=== PATIENT | male | born 1965 | race Two or more races ===

== ENCOUNTER 2017-02-27 16:50 | Emergency (ER) | payer MEDICAID ==
[~2017-02-27] VITALS: Ht 185.4 cm; Wt 95.3 kg
[2017-02-27] MEDS ORDERED: SODIUM CHLORIDE 0.9% 1,000 ML IVB ONE (16:57)
[2017-02-27] MEDS ORDERED: KETOROLAC TROMETH 30 MG/ML 1ML VIAL IV ONE (17:00)
[2017-02-27 17:23] LABS: Basophils # (auto) 0.1 uL; Basophils % (auto) 0.7 % (0.0-2.0); CONDITION Y; Eosinophils # (auto) 0.3 uL; Hematocrit 44.4 % (41.0-53.0); Lymphocytes # (auto) 1.7 uL; Lymphocytes % (auto) 12.6 % (10.0-50.0); Mean Corpuscular Hemoglobin 30.8 pg (28.0-32.0); Mean Corpuscular Hgb Conc. 33.8 g/dL (32.0-36.0); Mean Corpuscular Volume 91.1 fL (80.0-100.0); Mean Platelet Volume 8.7 fL (7.4-10.4); Monocytes # (auto) 0.7 uL; Monocytes % (auto) 5.1 % (0.0-12.0); Neutrophils # (auto) 10.9 uL; Neutrophils % (auto) 79.6 % (37.0-80.0); Platelet Count (auto) 327 10^3/uL (140-450); Red Cell Distribution Width 14.8 % (11.6-16.0); White Blood Cell 13.7 10^3/uL (4.4-10.8)
[2017-02-27 17:32] LABS: Albumin 3.4 g/dL (3.4-5.0); BUN/Creatinine Ratio 7.9; Calcium 8.4 mg/dL (8.5-10.1); Potassium 4.2 mmol/L (3.5-5.1)
[2017-02-27 17:35] LABS: Bilirubin, Total 0.2 mg/dL (0.2-1.0); Total Protein 7.3 g/dL (6.4-8.2)
[2017-02-27 18:00] VITALS: BP 161/93
[2017-02-27] MEDS ORDERED: MORPHINE SULFATE 4 MG/ML SYRG IV ONE (18:15)
[2017-02-27] MEDS ORDERED: ONDANSETRON HCL 4 MG/2 ML VIAL IV ONE (18:15)
[2017-02-27 18:24] LABS: Urine Bilirubin Negative (Negative); Urine Blood Negative /uL (Negative); Urine Color Yellow (Yellow); Urine Glucose Normal (Normal); Urine Ketone Negative (Negative); Urine Mucus FEW (None Seen); Urine Nitrite Negative (Negative); Urine RBC 1 /hpf (0 - 3); Urine Urobilinogen Normal (Negative); Urine pH 6.5 (5.0-8.0)
== END 2017-02-27 19:01 | disposition home or self-care (01) ==
LOC: ER 16:53
DX: N20.0 Calculus of kidney (principal); F17.210 Nicotine dependence, cigarettes, uncomplicated
CPT/HCPCS: 36415; 74176; 80053; 81001; 83690; 85025; 94761; 96361; 96374; 96375; 99285; J1885; J2270; J2405; J7030

== ENCOUNTER 2017-03-01 21:44 | Emergency (ER) | payer MEDICAID ==
[~2017-03-01] VITALS: Ht 185.4 cm; Wt 95.3 kg
[2017-03-01] MEDS ORDERED: SODIUM CHLORIDE 0.9% 1,000 ML IVB ONE (22:00)
[2017-03-01 22:53] LABS: Basophils # (auto) 0.1 uL; Basophils % (auto) 0.4 % (0.0-2.0); CONDITION Y; Eosinophils # (auto) 0.2 uL; Eosinophils % (auto) 1.6 % (0.0-7.0); Hematocrit 42.3 % (41.0-53.0); Hemoglobin 14.4 g/dL (13.5-17.5); Lymphocytes # (auto) 1.9 uL; Mean Corpuscular Hgb Conc. 34.2 g/dL (32.0-36.0); Mean Corpuscular Volume 90.6 fL (80.0-100.0); Mean Platelet Volume 8.1 fL (7.4-10.4); Monocytes % (auto) 7.6 % (0.0-12.0); Neutrophils # (auto) 10.4 uL; Neutrophils % (auto) 76.4 % (37.0-80.0); Platelet Count (auto) 328 10^3/uL (140-450); Red Cell Distribution Width 14.3 % (11.6-16.0); White Blood Cell 13.6 10^3/uL (4.4-10.8)
[2017-03-01 23:14] LABS: Albumin 3.2 g/dL (3.4-5.0); Anion Gap 8 (5-15); Aspartate Aminotransferase 16 U/L (15-37); BUN/Creatinine Ratio 10.8; Blood Urea Nitrogen 13 mg/dL (7-18); Calcium 8.2 mg/dL (8.5-10.1); Carbon Dioxide 28 mmol/L (21-32); Chloride 107 mmol/L (98-107); GFR African American 83 mL/min; GFR Non-African American 68 mL/min; Glucose 105 mg/dL (74-106); Sodium 143 mmol/L (136-145)
[2017-03-01 23:18] LABS: Alkaline Phosphatase 74 U/L (45-117); Bilirubin, Total 0.2 mg/dL (0.2-1.0); Total Protein 6.8 g/dL (6.4-8.2)
[2017-03-02] MEDS ORDERED: ONDANSETRON HCL 4 MG/2 ML VIAL IV ONE
[2017-03-02] MEDS ORDERED: HYDROmorphone HCL 2 MG/ML VL IV ONE
[2017-03-02] MEDS ORDERED: SODIUM CHLORIDE 0.9% 1,000 ML IV ONE (01:15)
[2017-03-02 02:00] VITALS: BP 148/92
[2017-03-03] MEDS ORDERED: HYDR-4663 PO (10:58)
[2017-03-03] MEDS ORDERED: CEPH500C PO (10:58)
[2017-03-03] MEDS ORDERED: TAM04C PO (16:24)
== END 2017-03-02 02:18 | disposition home or self-care (01) ==
LOC: ER 21:46
DX: N20.0 Calculus of kidney (principal); F17.210 Nicotine dependence, cigarettes, uncomplicated; Z88.8 Allergy status to other drugs, medicaments and biological substances
CPT/HCPCS: 36415; 74176; 80053; 84484; 85025; 96361; 96374; 96375; 99285; J1170; J2405; J7030

== ENCOUNTER 2017-03-02 06:01 | Inpatient (IN) | payer MEDICAID ==
[~2017-03-02] VITALS: Ht 185.4 cm; Wt 95.3 kg
[2017-03-02] MEDS ORDERED: cloNIDine HCL 0.1 MG TAB ONE (06:21)
[2017-03-02] MEDS ORDERED: cloNIDine HCL 0.1 MG TAB PO ONE (06:30)
[2017-03-02] MEDS ORDERED: SODIUM CHLORIDE 0.9% 1,000 ML IVB ONE (07:05)
[2017-03-02] MEDS ORDERED: KETOROLAC TROMETH 30 MG/ML 1ML VIAL IV ONE (07:15)
[2017-03-02 07:32] LABS: Basophils # (auto) 0.1 uL; Basophils % (auto) 0.4 % (0.0-2.0); CONDITION Y; Eosinophils # (auto) 0.2 uL; Eosinophils % (auto) 1.5 % (0.0-7.0); Hematocrit 41.1 % (41.0-53.0); Hemoglobin 13.8 g/dL (13.5-17.5); Lymphocytes # (auto) 1.5 uL; Lymphocytes % (auto) 10.4 % (10.0-50.0); Mean Corpuscular Hemoglobin 30.6 pg (28.0-32.0); Mean Corpuscular Hgb Conc. 33.5 g/dL (32.0-36.0); Mean Corpuscular Volume 91.2 fL (80.0-100.0); Mean Platelet Volume 8.2 fL (7.4-10.4); Monocytes # (auto) 1.1 uL; Monocytes % (auto) 7.9 % (0.0-12.0); Neutrophils # (auto) 11.7 uL; Neutrophils % (auto) 79.8 % (37.0-80.0); Platelet Count (auto) 319 10^3/uL (140-450); Red Cell Distribution Width 14.8 % (11.6-16.0); White Blood Cell 14.6 10^3/uL (4.4-10.8)
[2017-03-02 07:45] LABS: Bilirubin, Total 0.3 mg/dL (0.2-1.0); Potassium 3.8 mmol/L (3.5-5.1); Total Protein 6.7 g/dL (6.4-8.2)
[2017-03-02] MEDS ORDERED: hydrALAZINE HCL 20 MG/ML VL IV PRN (07:45)
[2017-03-02] MEDS ORDERED: SODIUM CHLORIDE 0.9% 1,000 ML IV SCH (07:45)
[2017-03-02] MEDS ORDERED: TAMSULOSIN HYDROCHLORIDE 0.4 MG CAP PO ONE (07:45)
[2017-03-02] MEDS ORDERED: NITROGLYCERIN 0.4 MG SL TAB SL PRN (07:45)
[2017-03-02] MEDS ORDERED: HYDROcodone-ACET 5/325MG TAB PO PRN (07:45)
[2017-03-02] MEDS ORDERED: cefTRIAXone 1GM/50ML D5W 50 ML IV ONE (07:45)
[2017-03-02] MEDS ORDERED: TEMAZEPAM 15 MG CAP PO PRN (07:45)
[2017-03-02] MEDS ORDERED: ACETAMINOPHEN 500 MG TAB PO PRN (07:45)
[2017-03-02] MEDS ORDERED: LORazepam 0.5 MG TAB PO PRN (07:45)
[2017-03-02] MEDS ORDERED: ONDANSETRON HCL 4 MG/2 ML VIAL IV PRN (07:45)
[2017-03-02] MEDS ORDERED: MORPHINE SULF INJ 2 MG/ML SYRINGE 1ML IV PRN (07:45)
[2017-03-02 09:46] LABS: Urine Bilirubin Negative (Negative); Urine Blood TRACE /uL (Negative); Urine Color Yellow (Yellow); Urine Glucose Normal (Normal); Urine Hyaline Cast FEW /lpf (0 - 2); Urine Ketone Negative (Negative); Urine Nitrite Negative (Negative); Urine RBC 4 /hpf (0 - 3); Urine Squamous Epithelial Cell FEW /hpf (<5); Urine Urobilinogen Normal (Negative)
[2017-03-02 10:46] VITALS: BP 130/84
[2017-03-02] MEDS: MORPHINE SULF INJ 2 MG/ML SYRINGE 1ML IV PRN ×2 (12:54→22:33)
[2017-03-02 14:58] VITALS: BP 130/84
[2017-03-02 17:36] VITALS: BP 145/87
[2017-03-02 22:00] VITALS: BP 156/81
[2017-03-03 05:00] VITALS: BP 139/92
[2017-03-03 06:29] LABS: Basophils # (auto) 0 uL; Basophils % (auto) 0.4 % (0.0-2.0); CONDITION Y; Eosinophils # (auto) 0.3 uL; Eosinophils % (auto) 2.1 % (0.0-7.0); Lymphocytes % (auto) 16.8 % (10.0-50.0); Mean Corpuscular Hemoglobin 30.9 pg (28.0-32.0); Mean Corpuscular Hgb Conc. 34.2 g/dL (32.0-36.0); Mean Corpuscular Volume 90.1 fL (80.0-100.0); Mean Platelet Volume 8.5 fL (7.4-10.4); Monocytes # (auto) 1.4 uL; Monocytes % (auto) 11.5 % (0.0-12.0); Neutrophils # (auto) 8.3 uL; Neutrophils % (auto) 69.2 % (37.0-80.0); Platelet Count (auto) 290 10^3/uL (140-450); Red Cell Distribution Width 14.6 % (11.6-16.0); White Blood Cell 11.9 10^3/uL (4.4-10.8)
[2017-03-03 06:52] LABS: BUN/Creatinine Ratio 9.2; Magnesium 2.3 mg/dL (1.6-2.6); Potassium 3.8 mmol/L (3.5-5.1)
[2017-03-03] MEDS ORDERED: SODIUM CHLORIDE 0.9% 1,000 ML IV SCH (07:45)
[2017-03-03 08:00] VITALS: BP 125/66
[2017-03-03] MEDS ORDERED: cefTRIAXone 1GM/50ML D5W 50 ML IV SCH (09:00)
[2017-03-03] MEDS ORDERED: HYDR-4663 PO (10:58)
[2017-03-03] MEDS ORDERED: CEPH500C PO (10:58)
[2017-03-03 13:00] VITALS: BP 132/64
[2017-03-03] MEDS ORDERED: TAM04C PO (16:24)
[2017-03-03 17:09] VITALS: BP 139/56
[2017-03-03 17:49] VITALS: BP 125/66
[2017-03-03] MEDS ORDERED: TAMSULOSIN HYDROCHLORIDE 0.4 MG CAP PO SCH (18:00)
== END 2017-03-03 18:30 | disposition home or self-care (01) | DRG 465 ==
LOC: ER 06:05 → TELE 06:06 → TELE-WESTW 10:31
PROVIDERS: ADMIT Nurse Practitioner Family; ATTEND Internal Medicine
DX: N13.2 Hydronephrosis with renal and ureteral calculous obstruction (principal); I16.0 Hypertensive urgency; I10 Essential (primary) hypertension; K40.90 Unilateral inguinal hernia, without obstruction or gangrene, not specified as recurrent; D72.829 Elevated white blood cell count, unspecified; F17.210 Nicotine dependence, cigarettes, uncomplicated; J98.11 Atelectasis
CPT/HCPCS: 36415; 80048; 80053; 80061; 81001; 83735; 85025; 94761; 96361; 96365; 96375; J0696; J1885

== ENCOUNTER 2018-01-01 21:12 | Emergency (ER) | payer SELFPAY ==
[~2018-01-01] VITALS: Ht 182.9 cm; Wt 90.7 kg
[~2018-01-01 21:12] MED LIST: CEPH500C PO; HYDR-4683 PO; TAM04C PO
[2018-01-01 21:48] VITALS: BP 130/99
== END 2018-01-01 23:00 | disposition left against medical advice (07) ==
LOC: ER 21:12
DX: S61.211A Laceration without foreign body of left index finger without damage to nail, initial encounter (principal); Z53.21 Procedure and treatment not carried out due to patient leaving prior to being seen by health care provider; W26.9XXA Contact with unspecified sharp object(s), initial encounter; Y93.89 Activity, other specified; Y99.8 Other external cause status; Y92.89 Other specified places as the place of occurrence of the external cause

== ENCOUNTER 2018-01-04 20:29 | Emergency (ER) | payer SELFPAY ==
[~2018-01-04] VITALS: Ht 182.9 cm; Wt 93.0 kg
[2018-01-04 20:52] VITALS: BP 149/97
[2018-01-05] MEDS ORDERED: TETANUS-DIPTH-ACEL PERTUSSIS 0.5ML SYRG IM ONE (00:15)
[2018-01-05] MEDS ORDERED: cefTRIAXone SOD 1,000 MG VL IM ONE (00:15)
== END 2018-01-05 00:44 | disposition home or self-care (01) ==
LOC: ER 20:29
DX: S61.211A Laceration without foreign body of left index finger without damage to nail, initial encounter (principal); F17.210 Nicotine dependence, cigarettes, uncomplicated; Z88.8 Allergy status to other drugs, medicaments and biological substances
CPT/HCPCS: 12001; 90471; 90715; 96372; 99284; J0696

== ENCOUNTER 2019-02-08 18:42 | Emergency (ER) | payer MEDICAID ==
[~2019-02-08] VITALS: Ht 185.4 cm; Wt 95.3 kg
[2019-02-08 19:48] LABS: Albumin 3.8 g/dL (3.4-5.0); Anion Gap 9 (5-15); Blood Urea Nitrogen 18 mg/dL (7-18); Calcium 8.2 mg/dL (8.5-10.1); Carbon Dioxide 22 mmol/L (21-32); Chloride 111 mmol/L (98-107); Potassium 3.3 mmol/L (3.5-5.1); Sodium 142 mmol/L (136-145)
[2019-02-08 19:51] LABS: Alanine Aminotransferase 56 U/L (16-61); Aspartate Aminotransferase 78 U/L (15-37); BUN/Creatinine Ratio 14.9; GFR African American 81 mL/min; GFR Non-African American 67 mL/min; Glucose 102 mg/dL (74-106); INR 0.98 (0.9-1.15); Partial Thromboplastin Time 24.1 sec (23.64-32.05)
[2019-02-08 19:55] LABS: Alkaline Phosphatase 88 U/L (45-117); Total Protein 7.6 g/dL (6.4-8.2)
[2019-02-08 20:12] LABS: Basophils # (auto) 0.1 uL; Basophils % (auto) 0.7 % (0.0-2.0); Eosinophils # (auto) 0.2 uL; Eosinophils % (auto) 1.8 % (0.0-7.0); Hematocrit 41.8 % (41.0-53.0); Lymphocytes # (auto) 2.4 uL; Lymphocytes % (auto) 19.7 % (10.0-50.0); Mean Corpuscular Hemoglobin 30.9 pg (28.0-32.0); Mean Corpuscular Hgb Conc. 33.5 g/dL (32.0-36.0); Mean Corpuscular Volume 92.3 fL (80.0-100.0); Monocytes # (auto) 1.2 uL; Monocytes % (auto) 9.8 % (0.0-12.0); Neutrophils # (auto) 8.2 uL; Nucleated Red Blood Cells % 0.1 %; Platelet Count (auto) 281 10^3/uL (140-450); Red Blood Cells 4.53 10^6/uL (4.5-5.90); Red Cell Distribution Width 14.5 % (11.8-14.3); White Blood Cell 12.1 10^3/uL (4.4-10.8)
[2019-02-08] MEDS ORDERED: IOHEXOL 350 MG/ML 100ML IJ ONE (20:42)
[2019-02-08] MEDS ORDERED: SODIUM CHLORIDE 0.9% 1,000 ML IV ONE ×2 (20:45→23:00)
[2019-02-08] MEDS ORDERED: ACETAMINOPHEN 325 MG TAB PO ONE (21:15)
[2019-02-08 22:27] LABS: Urine Bacteria NONE SEEN /hpf (None Seen); Urine Blood TRACE /uL (Negative); Urine Mucus FEW (None Seen); Urine WBC 1 /hpf (0 - 3)
[2019-02-08 22:30] LABS: Urine Specific Gravity > 1.050 (1.001-1.035)
[2019-02-08 22:53] LABS: Alcohol, Urine < 3.0 mg/dL (0-5); Amphetamine Screen, Urine POSITIVE (NEGATIVE); Benzodiazephine Screen, Urine NEGATIVE (NEGATIVE); Cocaine Screen, Urine NEGATIVE (NEGATIVE); Opiate Scree,Urine NEGATIVE (NEGATIVE); Phencyclidine Screen, Urine NEGATIVE (NEGATIVE)
[2019-02-08 23:00] LABS: Barbiturate Scree,Urine NEGATIVE (NEGATIVE); Cannabinoid Screen, Urine NEGATIVE (NEGATIVE)
[2019-02-08 23:32] VITALS: BP 128/92
== END 2019-02-08 23:48 | disposition home or self-care (01) ==
LOC: ER 18:44
DX: F19.10 Other psychoactive substance abuse, uncomplicated (principal); R53.83 Other fatigue; R06.02 Shortness of breath; I10 Essential (primary) hypertension; F17.210 Nicotine dependence, cigarettes, uncomplicated
CPT/HCPCS: 36415; 71046; 71275; 80053; 80307; 81001; 83880; 84484; 85025; 85379; 85610; 85730; 94761; 99284; J7030; Q9967

== ENCOUNTER 2020-12-11 21:05 | Emergency (ER) | payer SELFPAY ==
[~2020-12-11] VITALS: Ht 182.9 cm; Wt 86.2 kg
[~2020-12-11 21:05] MED LIST changes: -HYDR-4683 PO; +HYDR-4833 PO
[2020-12-11] MEDS ORDERED: KETOROLAC TROMETH 30 MG/ML 1ML VIAL IV ONE (21:45)
[2020-12-11 22:17] LABS: Basophils # (auto) 0.1 10 ^3/uL (0-0.2); Basophils % (auto) 1.2 % (0.0-2.0); Eosinophils # (auto) 0.2 10 ^3/uL (0-0.8); Hematocrit 43.6 % (41.0-53.0); Hemoglobin 14.9 g/dL (13.5-17.5); Lymphocytes # (auto) 1.8 10 ^3/uL (0.4-5.4); Lymphocytes % (auto) 27.9 % (10.0-50.0); Mean Corpuscular Hemoglobin 31.4 pg (28.0-32.0); Mean Corpuscular Hgb Conc. 34.2 g/dL (32.0-36.0); Monocytes # (auto) 0.6 10 ^3/uL (0-1.3); Monocytes % (auto) 9.4 % (0.0-12.0); Neutrophils # (auto) 3.7 10 ^3/uL (1.6-8.6); Neutrophils % (auto) 58.5 % (37.0-80.0); Nucleated Red Blood Cells % 0.1 %; Platelet Count (auto) 300 10^3/uL (140-450); Red Blood Cells 4.74 10^6/uL (4.5-5.90); Red Cell Distribution Width 14.2 % (11.8-14.3); White Blood Cell 6.3 10^3/uL (4.4-10.8)
[2020-12-11 22:34] LABS: Albumin 3.4 g/dL (3.4-5.0); Calcium 8.4 mg/dL (8.5-10.1); Potassium 4.1 mmol/L (3.5-5.1)
[2020-12-11 22:37] LABS: BUN/Creatinine Ratio 11.6
[2020-12-11 22:39] LABS: Bilirubin, Total 0.4 mg/dL (0.2-1.0); Total Protein 6.8 g/dL (6.4-8.2)
[2020-12-12] MEDS ORDERED: ONDANSETRON HCL 4 MG/2 ML VIAL IV ONE (00:45)
[2020-12-12] MEDS ORDERED: HYDROmorphone HCL 2 MG/ML VL IV ONE (00:45)
[2020-12-12 01:11] LABS: Urine Bacteria FEW /hpf (None Seen); Urine Blood 2+ /uL (Negative); Urine Mucus FEW (None Seen); Urine Specific Gravity 1.009 (1.001-1.035); Urine WBC 2 /hpf (0 - 3)
[2020-12-12 01:20] LABS: Alcohol, Urine < 3.0 mg/dL (0-10); Amphetamine Screen, Urine POSITIVE (NEGATIVE); Barbiturate Scree,Urine NEGATIVE (NEGATIVE); Benzodiazephine Screen, Urine NEGATIVE (NEGATIVE); Cannabinoid Screen, Urine NEGATIVE (NEGATIVE); Cocaine Screen, Urine NEGATIVE (NEGATIVE); Phencyclidine Screen, Urine NEGATIVE (NEGATIVE)
[2020-12-12 01:28] LABS: Opiate Scree,Urine NEGATIVE (NEGATIVE)
[2020-12-12 02:46] VITALS: BP 127/87
== END 2020-12-12 02:41 | disposition home or self-care (01) ==
LOC: ER 21:07
DX: N20.0 Calculus of kidney (principal)
CPT/HCPCS: 36415; 74176; 80053; 80307; 81001; 85025; 96374; 99285; J1885

== ENCOUNTER 2021-12-06 17:18 | Emergency (ER) | payer OTHER ==
[~2021-12-06] VITALS: Ht 182.9 cm; Wt 72.6 kg
[2021-12-06 17:18] VITALS: BP 153/103
[2021-12-06 17:57] LABS: Basophils # (auto) 0.1 10 ^3/uL (0-0.2); Basophils % (auto) 1.6 % (0.0-2.0); Eosinophils # (auto) 0.2 10 ^3/uL (0-0.8); Eosinophils % (auto) 3.5 % (0.0-7.0); Hematocrit 44.8 % (41.0-53.0); Hemoglobin 15.2 g/dL (13.5-17.5); Lymphocytes # (auto) 1.9 10 ^3/uL (0.4-5.4); Lymphocytes % (auto) 29.4 % (10.0-50.0); Mean Corpuscular Hemoglobin 31.6 pg (28.0-32.0); Mean Corpuscular Hgb Conc. 33.9 g/dL (32.0-36.0); Mean Corpuscular Volume 93.2 fL (80.0-100.0); Monocytes # (auto) 0.5 10 ^3/uL (0-1.3); Neutrophils # (auto) 3.7 10 ^3/uL (1.6-8.6); Neutrophils % (auto) 57.5 % (37.0-80.0); Nucleated Red Blood Cells % 0.2 %; Red Blood Cells 4.81 10^6/uL (4.5-5.90); White Blood Cell 6.4 10^3/uL (4.4-10.8)
[2021-12-06 19:17] LABS: Albumin 3.5 g/dL (3.4-5.0); Calcium 8.6 mg/dL (8.5-10.1); Potassium 4.2 mmol/L (3.5-5.1)
[2021-12-06 19:20] LABS: BUN/Creatinine Ratio 9.4; Bilirubin, Total 0.2 mg/dL (0.2-1.0); Total Protein 7.1 g/dL (6.4-8.2)
[2021-12-06] MEDS ORDERED: PRED10TA PO (19:22)
[2021-12-06] MEDS ORDERED: PANT40TA2 PO (19:22)
[2021-12-06] MEDS ORDERED: LORazepam 0.5 MG TAB PO ONE (19:30)
[2021-12-06] MEDS ORDERED: methylPREDNISolone SOD SUCC 125 MG/2 ML VL IM ONE (19:30)
[2021-12-12] MEDS ORDERED: LISD50CA4 PO (18:58)
== END 2021-12-06 20:14 | disposition home or self-care (01) ==
LOC: ER 17:18
DX: M54.12 Radiculopathy, cervical region (principal); I10 Essential (primary) hypertension; M47.812 Spondylosis without myelopathy or radiculopathy, cervical region; F17.210 Nicotine dependence, cigarettes, uncomplicated; F15.10 Other stimulant abuse, uncomplicated; Z87.442 Personal history of urinary calculi
CPT/HCPCS: 36415; 71250; 72125; 73060; 80053; 84484; 85025; 93005

== ENCOUNTER 2022-01-05 16:19 | Emergency (ER) | payer OTHER ==
[~2022-01-05] VITALS: Ht 182.9 cm; Wt 81.6 kg
[~2022-01-05 16:19] MED LIST changes: +LISD50CA4 PO; +PANT40TA2 PO; +PRED10TA PO
[2022-01-05] MEDS ORDERED: FLUORESCEIN SOD OPTH TEST STRIP OP ONE (16:45)
[2022-01-05] MEDS ORDERED: TOBR0.3S RIGHT EAR (17:00)
[2022-01-05 17:15] VITALS: BP 130/76
[2022-01-05] MEDS ORDERED: TOBR0.3S RIGHTEYE (17:18)
== END 2022-01-05 17:21 | disposition home or self-care (01) ==
LOC: ER 16:19
DX: S05.01XA Injury of conjunctiva and corneal abrasion without foreign body, right eye, initial encounter (principal); I10 Essential (primary) hypertension; F17.210 Nicotine dependence, cigarettes, uncomplicated; F15.10 Other stimulant abuse, uncomplicated; Z87.442 Personal history of urinary calculi; W22.8XXA Striking against or struck by other objects, initial encounter; Y93.89 Activity, other specified; Y92.89 Other specified places as the place of occurrence of the external cause; Y99.8 Other external cause status

== ENCOUNTER 2022-11-08 14:25 | Emergency (ER) | payer OTHER ==
[~2022-11-08] VITALS: Ht 177.8 cm; Wt 85.0 kg
[~2022-11-08 14:25] MED LIST changes: +TOBR0.3S RIGHTEYE
[2022-11-08 15:09] VITALS: BP 135/85
[2022-11-08 15:14] LABS: Basophils # (auto) 0.1 10 ^3/uL (0-0.2); Eosinophils # (auto) 0.6 10 ^3/uL (0-0.8); Eosinophils % (auto) 7.6 % (0.0-7.0); Hematocrit 42.7 % (41.0-53.0); Hemoglobin 14.2 g/dL (13.5-17.5); Lymphocytes # (auto) 1.9 10 ^3/uL (0.4-5.4); Lymphocytes % (auto) 23.9 % (10.0-50.0); Mean Corpuscular Hemoglobin 30.4 pg (28.0-32.0); Mean Corpuscular Hgb Conc. 33.2 g/dL (32.0-36.0); Mean Corpuscular Volume 91.7 fL (80.0-100.0); Monocytes # (auto) 0.8 10 ^3/uL (0-1.3); Monocytes % (auto) 9.6 % (0.0-12.0); Neutrophils # (auto) 4.6 10 ^3/uL (1.6-8.6); Neutrophils % (auto) 57.9 % (37.0-80.0); Red Blood Cells 4.66 10^6/uL (4.5-5.90); Red Cell Distribution Width 14.3 % (11.8-14.3); White Blood Cell 7.9 10^3/uL (4.4-10.8)
[2022-11-08 15:29] LABS: Albumin 3.4 g/dL (3.4-5.0); Potassium 4.3 mmol/L (3.5-5.1)
[2022-11-08 15:32] LABS: BUN/Creatinine Ratio 15.9 (10.0-20.0); Bilirubin, Total 0.2 mg/dL (0.2-1.0); Total Protein 6.6 g/dL (6.4-8.2)
[2022-11-08] MEDS ORDERED: methylPREDNISolone SOD SUCC 125 MG/2 ML VL IM ONE (16:15)
[2022-11-08] MEDS ORDERED: cefTRIAXone SOD 1,000 MG VL IM ONE (16:15)
[2022-11-08] MEDS ORDERED: CEPH-510 PO (16:18)
[2022-11-08] MEDS ORDERED: PRED20TA2 PO (16:18)
[2022-11-08] MEDS ORDERED: TRIA0.1O TOP (16:18)
== END 2022-11-08 16:39 | disposition home or self-care (01) ==
LOC: ER 14:25
DX: L23.9 Allergic contact dermatitis, unspecified cause (principal); I10 Essential (primary) hypertension; F17.210 Nicotine dependence, cigarettes, uncomplicated; F15.10 Other stimulant abuse, uncomplicated; Z87.442 Personal history of urinary calculi; Z88.1 Allergy status to other antibiotic agents; Z88.6 Allergy status to analgesic agent
CPT/HCPCS: 36415; 80053; 85025; 87205; 96372; 99284; J0696; J2930; 87077; 87186

== ENCOUNTER 2022-12-24 19:12 | Emergency (ER) | payer OTHER ==
[~2022-12-24] VITALS: Ht 182.9 cm; Wt 90.0 kg
[2022-12-24 19:12] VITALS: BP 182/92
[~2022-12-24 19:12] MED LIST changes: +CEPH-510 PO; +PRED20TA2 PO; +TRIA0.1O TOP
[2022-12-26] MEDS ORDERED: TRIA0.1O TOP (15:04)
[2022-12-26] MEDS ORDERED: CEPH-510 PO (15:04)
[2022-12-26] MEDS ORDERED: PRED20TA2 PO (15:04)
== END 2022-12-25 00:22 | disposition left against medical advice (07) ==
LOC: ER 19:12
DX: R21 Rash and other nonspecific skin eruption (principal); L29.9 Pruritus, unspecified; Z53.21 Procedure and treatment not carried out due to patient leaving prior to being seen by health care provider

== ENCOUNTER 2022-12-26 12:40 | Emergency (ER) | payer OTHER ==
[~2022-12-26] VITALS: Ht 182.9 cm; Wt 86.3 kg
[2022-12-26 14:10] VITALS: BP 138/98
[2022-12-26] MEDS ORDERED: PRED20TA2 PO (15:04)
[2022-12-26] MEDS ORDERED: TRIA0.1O TOP (15:04)
[2022-12-26] MEDS ORDERED: CEPH-510 PO (15:04)
== END 2022-12-26 15:11 | disposition home or self-care (01) ==
LOC: ER 12:40
DX: L23.9 Allergic contact dermatitis, unspecified cause (principal); I10 Essential (primary) hypertension; F17.210 Nicotine dependence, cigarettes, uncomplicated; F15.10 Other stimulant abuse, uncomplicated; Z87.442 Personal history of urinary calculi; Z88.6 Allergy status to analgesic agent

== ENCOUNTER 2023-03-13 13:59 | Emergency (ER) | payer MEDICAID, OTHER ==
[~2023-03-13] VITALS: Ht 182.9 cm; Wt 87.1 kg
[~2023-03-13 13:59] MED LIST changes: -TAM04C PO; +TAMS-35 PO
[2023-03-13 14:47] VITALS: BP 141/96; PULSE 103; RESP 18; TEMP 98.6; O2SAT 98
[2023-03-13] MEDS ORDERED: CLIN300C70 PO (15:15)
== END 2023-03-13 15:19 | disposition home or self-care (01) ==
LOC: ER 13:59
DX: S40.862D Insect bite (nonvenomous) of left upper arm, subsequent encounter (principal); S40.861D Insect bite (nonvenomous) of right upper arm, subsequent encounter; I10 Essential (primary) hypertension; F17.210 Nicotine dependence, cigarettes, uncomplicated; F15.90 Other stimulant use, unspecified, uncomplicated; Z88.8 Allergy status to other drugs, medicaments and biological substances; Z79.1 Long term (current) use of non-steroidal anti-inflammatories (NSAID); Z87.442 Personal history of urinary calculi; Z79.899 Other long term (current) drug therapy; W57.XXXD Bitten or stung by nonvenomous insect and other nonvenomous arthropods, subsequent encounter

== ENCOUNTER 2024-03-18 18:40 | Emergency (ER) | payer SELFPAY ==
[~2024-03-18] VITALS: Ht 182.9 cm; Wt 91.0 kg
[~2024-03-18 18:40] MED LIST changes: +CLIN1CAP70 PO
[2024-03-18 19:30] VITALS: PULSE 90; RESP 11; O2SAT 97
[2024-03-18] MEDS: PANTOPRAZOLE 40 MG/10 ML VIAL INJ IV ONE (19:55)
[2024-03-18] MEDS: ONDANSETRON HCL 4 MG/2 ML VIAL IV ONE (19:55)
[2024-03-18] MEDS: SODIUM CHLORIDE 0.9% 2,000 ML IV ONE (19:55)
[2024-03-18 19:56] LABS: Basophils # (auto) 0 10 ^3/uL (0-0.2); Basophils % (auto) 0.5 % (0.0-2.0); Eosinophils # (auto) 0.2 10 ^3/uL (0-0.8); Hematocrit 44.7 % (41.0-53.0); Lymphocytes # (auto) 1.3 10 ^3/uL (0.4-5.4); Lymphocytes % (auto) 13.6 % (10.0-50.0); Mean Corpuscular Hemoglobin 30.9 pg (28.0-32.0); Mean Corpuscular Hgb Conc. 33.4 g/dL (32.0-36.0); Mean Corpuscular Volume 92.4 fL (80.0-100.0); Monocytes # (auto) 0.8 10 ^3/uL (0-1.3); Monocytes % (auto) 8.4 % (0.0-12.0); Neutrophils # (auto) 7.3 10 ^3/uL (1.6-8.6); Neutrophils % (auto) 75.5 % (37.0-80.0); Red Blood Cells 4.84 10^6/uL (4.5-5.90); Red Cell Distribution Width 14.4 % (11.8-14.3); White Blood Cell 9.6 10^3/uL (4.4-10.8)
[2024-03-18 20:11] LABS: Alanine Aminotransferase 15 U/L (7-40); Alkaline Phosphatase 87 U/L (46-116); Anion Gap 4 (5-15); Aspartate Aminotransferase 13 U/L (13-40); BUN/Creatinine Ratio 14.5 (10.0-20.0); Bilirubin, Total 0.7 mg/dL (0.2-1.0); Blood Urea Nitrogen 12 mg/dL (9-23); Calcium 9.2 mg/dL (8.7-10.4); Carbon Dioxide 28 mmol/L (20-30); Chloride 106 mmol/L (98-107); Glucose 121 mg/dL (74-106); Potassium 3.9 mmol/L (3.5-5.1); Sodium 138 mmol/L (136-145)
[2024-03-18 20:12] LABS: Total Protein 6.6 g/dL (5.7-8.2)
[2024-03-18] MEDS: ACETAMINOPHEN 325 MG TAB PO ONE (20:44)
[2024-03-18] MEDS: KETOROLAC TROMETH 30 MG/ML 1ML VIAL IV ONE (20:45)
[2024-03-18 21:44] VITALS: TEMP 97.8
[2024-03-18] MEDS: SODIUM CHLORIDE 0.9% 1,000 ML IV ONE (22:28)
[2024-03-18 23:00] VITALS: PULSE 83
[2024-03-19] MEDS: METOCLOPRAMIDE HCL 5MG/ml INJ 2ml VIAL IV ONE (00:05)
[2024-03-19 00:41] VITALS: BP 148/83; RESP 15; O2SAT 90
[2024-03-19] MEDS ORDERED: AUG875T PO (00:48)
[2024-03-19] MEDS: AMOXICILLIN/CLAVUL 875 MG TAB PO ONE (00:52)
== END 2024-03-19 01:16 | disposition home or self-care (01) ==
LOC: ER 18:40
DX: E86.0 Dehydration (principal); R53.1 Weakness; F19.10 Other psychoactive substance abuse, uncomplicated; I10 Essential (primary) hypertension; Z87.442 Personal history of urinary calculi; F17.210 Nicotine dependence, cigarettes, uncomplicated; F15.90 Other stimulant use, unspecified, uncomplicated; Z88.0 Allergy status to penicillin; Z79.899 Other long term (current) drug therapy; Z79.84 Long term (current) use of oral hypoglycemic drugs
CPT/HCPCS: 36415; 80053; 84484; 85025; 93005; 96361; 96374; 96375; 99285; J1885; J2405; J2470; J2765; J7030